=== PATIENT | female | born 1940 | race Caucasian/White ===

== ENCOUNTER 2023-01-02 15:00 | Inpatient (IN) | payer OTHER ==
[~2023-01-02] VITALS: Ht 162.6 cm; Wt 72.6 kg
[2023-01-02] MEDS ORDERED: IV NS 0.9% 1,000 ML BAG IV ONE (16:00)
[2023-01-02 16:05] LABS: BASOPHILS # (AUTO) 0.1 K/uL (0.0-0.2); BASOPHILS % (AUTO) 0.8 % (0.0-2.0); EOSINOPHILS % (AUTO) 0.7 % (0.0-6.0); HEMATOCRIT 47 % (33-45); HEMOGLOBIN 15.8 g/dL (11.5-14.8); LYMPHOCYTES # (AUTO) 0.9 K/uL (0.8-4.8); LYMPHOCYTES % (AUTO) 15.6 % (20.0-44.0); MEAN CORPUSCULAR HEMOGLOBIN 31 PG (26.0-33.0); MEAN CORPUSCULAR HGB CONC 34 g/dl (31.0-36.0); MEAN CORPUSCULAR VOLUME 92 fL (82-100); MONOCYTES # (AUTO) 0.3 K/uL (0.1-1.30); MONOCYTES % (AUTO) 5.2 % (2.0-12.0); NEUTROPHILS # (AUTO) 4.7 K/uL (1.8-8.9); NEUTROPHILS % (AUTO) 77.7 % (43.0-81.0); PLATELET COUNT (AUTO) 191 K/uL (150-450); RED BLOOD CELL COUNT(AUTO) 5.15 MIL/uL (4.0-5.2); RED CELL DISTRIBUTION WIDTH 17.3 % (11.5-15.0)
[2023-01-02 16:21] LABS: CALCIUM, SERUM 10.1 mg/dL (8.5-10.1); CARBON DIOXIDE 27 mmol/L (21-32); CHLORIDE 98 mmol/L (98-107); CREATININE 1.4 mg/dL (0.6-1.3); GLUCOSE 122 mg/dL (74-106); SODIUM SERUM 139 mmol/L (136-145); UREA NITROGEN, BLOOD 20 mg/dL (7-18)
[2023-01-02 16:26] LABS: LACTIC ACID 2.3 mmol/L (0.4-2.0)
[2023-01-02] MEDS ORDERED: POTASSIUM CHLORIDE 20 MEQ TAB.PRT.SR PO ONE ×2 (17:30→17:37)
[2023-01-02] MEDS ORDERED: POTA20TA10 PO (17:41)
[2023-01-02] MEDS ORDERED: BISA-79 PO (17:41)
[2023-01-02] MEDS ORDERED: ROSU20TA2 PO (17:41)
[2023-01-02] MEDS ORDERED: LEVO88TA5 PO (17:41)
[2023-01-02] MEDS ORDERED: BACL5TAB PO (17:41)
[2023-01-02] MEDS ORDERED: DIPH25TA25 PO (17:41)
[2023-01-02] MEDS ORDERED: ACET-2605 PO (17:41)
[2023-01-02] MEDS ORDERED: RIVA15TA PO (17:41)
[2023-01-02] MEDS ORDERED: INDA2.5T5 PO (17:41)
[2023-01-02] MEDS ORDERED: GABA300C PO (17:41)
[2023-01-02] MEDS ORDERED: SENN-261 PO (17:41)
[2023-01-02] MEDS ORDERED: FLUC150T5 PO (17:41)
[2023-01-02 17:47] LABS: INR 1.06 (0.91-1.10); PARTIAL THROMBOPLASTIN TIME 22.8 SEC (24.3-34.3); PROTHROMBIN TIME 11.1 SECS (9.2-11.1)
[2023-01-02 17:52] LABS: ALBUMIN 3.5 g/dL (3.4-5.0); BILIRUBIN,DIRECT 0.4 mg/dL (0.0-0.2); BILIRUBIN,TOTAL 2.8 mg/dL (0.2-1.0); MAGNESIUM 2.3 mg/dL (1.8-2.4); TOTAL PROTEIN, SERUM 7.1 g/dL (6.4-8.2)
[2023-01-02 19:08] LABS: BILIRUBIN,DIRECT 0.4 mg/dL (0.0-0.2); BILIRUBIN,TOTAL 1.9 mg/dL (0.2-1.0)
[2023-01-02 20:42] LABS: APPEARANCE,URINE CLOUDY (CLEAR); BILIRUBIN,URINE NEGATIVE (NEGATIVE); BLOOD, URINE 3+ Ery/uL (NEGATIVE); COLOR,URINE YELLOW (YELLOW); KETONES,URINE NEGATIVE (NEGATIVE); LEUKOCYTE ESTERASE ,URINE 3+ (NEGATIVE); NITRITE, URINE POSITIVE (NEGATIVE); PH,URINE 6.5 (5.0-8.0); PROTEIN,URINE 1+ mg/dl (NEGATIVE); UGLUCOSE NEGATIVE (NEGATIVE)
[2023-01-02 21:30] VITALS: BP 118/79; TEMP 97.5; O2SAT 96
[2023-01-02] MEDS ORDERED: ONDANSETRON HCL/PF 4 MG/2 ML VIAL IVP PRN (22:00)
[2023-01-02] MEDS ORDERED: HYDROCODONE/APAP 10/325MG TABLET PO PRN (22:00)
[2023-01-02] MEDS ORDERED: ZOLPIDEM TARTRATE 5 MG TABLET PO PRN (22:00)
[2023-01-02] MEDS ORDERED: SENNOSIDES 8.6 MG TABLET PO SCH (22:00)
[2023-01-02] MEDS ORDERED: MAG HYDROX/AL HYDROX/SIMETH 30 ML UDC PO PRN (22:00)
[2023-01-02] MEDS ORDERED: MAGNESIUM HYDROXIDE 30 ML UDC PO PRN (22:00)
[2023-01-02] MEDS ORDERED: Z GUARD REMEDY 4 OZ OINT TP PRN (22:00)
[2023-01-02] MEDS ORDERED: ACETAMINOPHEN 325 MG TABLET PO PRN (22:00)
[2023-01-02 22:05] LABS: ADD URINE CULTURE YES; BACTERIA,URINE 4+ /HPF (None Seen); RBC,URINE 51-80 /HPF (0-2); SQUAMOUS EPITHELIAL CELL,UR 0-2 /HPF (None Seen); WBC,URINE 51-80 /HPF (0-3)
[2023-01-02] MEDS: IV NS 0.9% 1,000 ML IV PRN (22:12)
[2023-01-02] MEDS: RIVAROXABAN 15 MG TABLET PO SCH (22:17)
[2023-01-02] MEDS: ATORVASTATIN 40 MG TABLET PO SCH (22:17)
[2023-01-03] MEDS ORDERED: CIPROFLOXACIN IV RTU 400 MG in PREMIX 1 EA IV SCH (02:00)
[2023-01-03] MEDS ORDERED: CIPROFLOXACIN IV RTU 200 ML IV ONE (03:07)
[2023-01-03 06:29] LABS: BASOPHILS % (AUTO) 0.3 % (0.0-2.0); EOSINOPHILS % (AUTO) 0.9 % (0.0-6.0); HEMATOCRIT 36 % (33-45); HEMOGLOBIN 12.6 g/dL (11.5-14.8); LYMPHOCYTES # (AUTO) 1.1 K/uL (0.8-4.8); LYMPHOCYTES % (AUTO) 20.6 % (20.0-44.0); MEAN CORPUSCULAR HEMOGLOBIN 32 PG (26.0-33.0); MEAN CORPUSCULAR HGB CONC 35 g/dl (31.0-36.0); MEAN CORPUSCULAR VOLUME 91 fL (82-100); MONOCYTES # (AUTO) 0.4 K/uL (0.1-1.30); MONOCYTES % (AUTO) 6.6 % (2.0-12.0); NEUTROPHILS # (AUTO) 3.8 K/uL (1.8-8.9); NEUTROPHILS % (AUTO) 71.6 % (43.0-81.0); PLATELET COUNT (AUTO) 166 K/uL (150-450); RED BLOOD CELL COUNT(AUTO) 3.97 MIL/uL (4.0-5.2); RED CELL DISTRIBUTION WIDTH 16.4 % (11.5-15.0); WHITE BLOOD COUNT (AUTO) 5.3 K/uL (4.3-11.0)
[2023-01-03 06:46] LABS: CALCIUM, SERUM 8.8 mg/dL (8.5-10.1); CARBON DIOXIDE 26 mmol/L (21-32); CHLORIDE 105 mmol/L (98-107); CREATININE 1.1 mg/dL (0.6-1.3); GLUCOSE 90 mg/dL (74-106); MAGNESIUM 2.2 mg/dL (1.8-2.4); PHOSPHORUS 3.2 mg/dL (2.5-4.9); SODIUM SERUM 141 mmol/L (136-145); UREA NITROGEN, BLOOD 17 mg/dL (7-18)
[2023-01-03 06:59] LABS: CHOLESTEROL 134 mg/dL (<200); HDL CHOLESTEROL 51 mg/dL (40-60); LDL 66 mg/dL (0-99); THYROID STIMULATING HORMONE 1.152 uIU/mL (0.358-3.74); TRIGLYCERIDES 65 mg/dL (30-150)
[2023-01-03 07:10] LABS: POTASSIUM 2.3 mmol/L (3.5-5.1)
[2023-01-03] MEDS: LEVOTHYROXINE SODIUM 88 MCG TABLET PO SCH (07:54)
[2023-01-03 08:00] VITALS: BP 112/64; TEMP 98.2; O2SAT 94
[2023-01-03] MEDS ORDERED: POTASSIUM CHLORIDE 20 MEQ TAB.PRT.SR PO ONE ×2 (08:30→20:00)
[2023-01-03] MEDS: INDAPAMIDE 2.5 MG TABLET PO SCH (09:00)
[2023-01-03] MEDS: IV NS 0.9% 1,000 ML IV PRN (12:30)
[2023-01-03 16:00] VITALS: BP 114/59; TEMP 97.9; O2SAT 94
[2023-01-03 20:00] VITALS: BP 107/59; TEMP 97.9; O2SAT 94
[2023-01-03] MEDS: CIPROFLOXACIN IV RTU 400 MG in PREMIX 1 EA IV SCH (21:22)
[2023-01-03] MEDS: ATORVASTATIN 40 MG TABLET PO SCH (21:25)
[2023-01-03] MEDS: RIVAROXABAN 15 MG TABLET PO SCH (21:27)
[2023-01-04] VITALS (8 sets, daily range): BP systolic 95–119; BP diastolic 53–80; TEMP 97.4–98.1; O2SAT 94–98
[2023-01-04] MEDS: IV NS 0.9% 1,000 ML IV PRN (04:18)
[2023-01-04 06:52] LABS: BASOPHILS % (AUTO) 0.5 % (0.0-2.0); EOSINOPHILS % (AUTO) 1.6 % (0.0-6.0); HEMATOCRIT 35 % (33-45); HEMOGLOBIN 11.8 g/dL (11.5-14.8); LYMPHOCYTES # (AUTO) 0.9 K/uL (0.8-4.8); LYMPHOCYTES % (AUTO) 31.1 % (20.0-44.0); MEAN CORPUSCULAR HEMOGLOBIN 31 PG (26.0-33.0); MEAN CORPUSCULAR HGB CONC 34 g/dl (31.0-36.0); MEAN CORPUSCULAR VOLUME 93 fL (82-100); MONOCYTES # (AUTO) 0.2 K/uL (0.1-1.30); MONOCYTES % (AUTO) 7.5 % (2.0-12.0); NEUTROPHILS # (AUTO) 1.8 K/uL (1.8-8.9); NEUTROPHILS % (AUTO) 59.3 % (43.0-81.0); PLATELET COUNT (AUTO) 148 K/uL (150-450); RED BLOOD CELL COUNT(AUTO) 3.79 MIL/uL (4.0-5.2)
[2023-01-04 07:07] LABS: CALCIUM, SERUM 8.7 mg/dL (8.5-10.1); CARBON DIOXIDE 25 mmol/L (21-32); CHLORIDE 107 mmol/L (98-107); GLUCOSE 103 mg/dL (74-106); MAGNESIUM 2.3 mg/dL (1.8-2.4); PHOSPHORUS 2.5 mg/dL (2.5-4.9); POTASSIUM 3.2 mmol/L (3.5-5.1); SODIUM SERUM 139 mmol/L (136-145); UREA NITROGEN, BLOOD 12 mg/dL (7-18)
[2023-01-04] MEDS ORDERED: POTASSIUM CHLORIDE 20 MEQ TAB.PRT.SR PO ONE (08:00)
[2023-01-04] MEDS: INDAPAMIDE 2.5 MG TABLET PO SCH (09:00)
[2023-01-04] MEDS: CIPROFLOXACIN IV RTU 400 MG in PREMIX 1 EA IV SCH ×2 (09:37→20:45)
[2023-01-04] MEDS: LEVOTHYROXINE SODIUM 88 MCG TABLET PO SCH (09:37)
[2023-01-04 14:14] LABS: URIC ACID 4.6 mg/dL (2.6-7.2)
[2023-01-04] MEDS: MUPIROCIN OINT 2% 22 GM TUBE NS SCH ×2 (17:14→20:46)
[2023-01-04] MEDS: ATORVASTATIN 40 MG TABLET PO SCH (21:26)
[2023-01-04] MEDS: RIVAROXABAN 15 MG TABLET PO SCH (21:30)
[2023-01-05] VITALS: BP 113/63; TEMP 97.8; O2SAT 95
[2023-01-05] MEDS: IV NS 0.9% 1,000 ML IV PRN (00:57)
[2023-01-05 05:00] VITALS: BP 119/64; TEMP 98.1; O2SAT 95
[2023-01-05 08:24] VITALS: BP 114/59; TEMP 97.5; O2SAT 94
[2023-01-05] MEDS: INDAPAMIDE 2.5 MG TABLET PO SCH (08:27)
[2023-01-05] MEDS: MUPIROCIN OINT 2% 22 GM TUBE NS SCH (08:27)
[2023-01-05] MEDS: LEVOTHYROXINE SODIUM 88 MCG TABLET PO SCH (08:27)
[2023-01-05] MEDS: CIPROFLOXACIN IV RTU 400 MG in PREMIX 1 EA IV SCH (08:27)
[2023-01-05] MEDS ORDERED: PERMETHRIN 5% CRM 60 GM TUBE TP ONE (09:00)
[2023-01-05 09:01] LABS: BASOPHILS % (AUTO) 0.5 % (0.0-2.0); EOSINOPHILS # (AUTO) 0.1 K/uL (0.0-0.7); EOSINOPHILS % (AUTO) 2.6 % (0.0-6.0); HEMATOCRIT 36 % (33-45); LYMPHOCYTES # (AUTO) 0.7 K/uL (0.8-4.8); LYMPHOCYTES % (AUTO) 26.6 % (20.0-44.0); MEAN CORPUSCULAR HEMOGLOBIN 31 PG (26.0-33.0); MEAN CORPUSCULAR HGB CONC 33 g/dl (31.0-36.0); MEAN CORPUSCULAR VOLUME 94 fL (82-100); MONOCYTES # (AUTO) 0.1 K/uL (0.1-1.30); MONOCYTES % (AUTO) 5.3 % (2.0-12.0); NEUTROPHILS # (AUTO) 1.7 K/uL (1.8-8.9); PLATELET COUNT (AUTO) 156 K/uL (150-450); RED BLOOD CELL COUNT(AUTO) 3.84 MIL/uL (4.0-5.2); RED CELL DISTRIBUTION WIDTH 17.1 % (11.5-15.0); WHITE BLOOD COUNT (AUTO) 2.7 K/uL (4.3-11.0)
[2023-01-05 09:52] LABS: CALCIUM, SERUM 8.7 mg/dL (8.5-10.1); CREATININE 1.1 mg/dL (0.6-1.3); MAGNESIUM 1.9 mg/dL (1.8-2.4); PHOSPHORUS 2.2 mg/dL (2.5-4.9); POTASSIUM 3.1 mmol/L (3.5-5.1)
[2023-01-05 12:12] VITALS: BP 96/48; TEMP 98.1; O2SAT 100
[2023-01-05 12:48] LABS: LYMPHOCYTES % (MANUAL) 28 % (16-48); MONOCYTES % (MANUAL) 7 % (0-11.0); NEUTROPHILS % (MANUAL) 65 (42-76)
[2023-01-05 12:49] LABS: ANISOCYTOSIS 1+; PLATELET ESTIMATE ADEQUATE
[2023-01-05] MEDS ORDERED: NEUTRA PHOS 1 POWD.PACKET PO ONE (14:00)
[2023-01-05] MEDS ORDERED: POTASSIUM CHLORIDE 20 MEQ TAB.PRT.SR PO ONE (14:00)
[2023-01-05] MEDS ORDERED: NEUTRA PHOS 1 POWD.PACKET NG ONE (16:00)
[2023-01-05 16:06] VITALS: BP_SYST 117; BP_SYST 125; BP_DIAS 63; BP_DIAS 75; TEMP 97.5; O2SAT 96
[2023-01-05] MEDS ORDERED: CIPR250T4 PO (17:04)
== END 2023-01-05 15:51 | disposition home health service (06) | DRG 640 ==
LOC: ER 15:06 → TELE 20:15
PROVIDERS: ADMIT Nurse Practitioner Acute Care; ATTEND Internal Medicine
DX: E86.0 Dehydration (principal); N17.0 Acute kidney failure with tubular necrosis; N39.0 Urinary tract infection, site not specified; N13.6 Pyonephrosis; G45.9 Transient cerebral ischemic attack, unspecified; E87.6 Hypokalemia; E86.1 Hypovolemia; E78.5 Hyperlipidemia, unspecified; I25.2 Old myocardial infarction; Z86.711 Personal history of pulmonary embolism; Z86.718 Personal history of other venous thrombosis and embolism; Z89.612 Acquired absence of left leg above knee; Z87.442 Personal history of urinary calculi; E89.0 Postprocedural hypothyroidism; Z85.53 Personal history of malignant neoplasm of renal pelvis; Z90.5 Acquired absence of kidney; Z89.512 Acquired absence of left leg below knee; Z88.0 Allergy status to penicillin; Z88.2 Allergy status to sulfonamides; Z88.7 Allergy status to serum and vaccine; Z88.8 Allergy status to other drugs, medicaments and biological substances; Z88.1 Allergy status to other antibiotic agents; Z91.041 Radiographic dye allergy status; Z79.01 Long term (current) use of anticoagulants; Z79.899 Other long term (current) drug therapy; Z79.3 Long term (current) use of hormonal contraceptives; F41.9 Anxiety disorder, unspecified; I25.10 Atherosclerotic heart disease of native coronary artery without angina pectoris; B96.89 Other specified bacterial agents as the cause of diseases classified elsewhere; R91.8 Other nonspecific abnormal finding of lung field; E80.6 Other disorders of bilirubin metabolism; Z86.74 Personal history of sudden cardiac arrest; R26.9 Unspecified abnormalities of gait and mobility; E66.9 Obesity, unspecified; Z68.27 Body mass index [BMI] 27.0-27.9, adult; D32.9 Benign neoplasm of meninges, unspecified; L53.9 Erythematous condition, unspecified; K57.30 Diverticulosis of large intestine without perforation or abscess without bleeding; N75.0 Cyst of Bartholin's gland
CPT/HCPCS: 36415; 70450-TC; 71045-TC; 71250-TC; 76770-TC; 80048-TC; 80061-TC; 80076-TC; 81001; 82247-TC; 82248-TC; 83605-TC; 83735-TC; 84100-TC; 84132-TC; 84443-TC; 84484-TC; 84550-TC; 85025-TC; 85652-TC; 85730-TC; 86140-TC; 87040-TC; 87081-TC; 87086-TC; 93307-TC; 97110-TC; 97530-TC; A4216; A4223; A6403; G0378; J0744; J2405; J7030

== ENCOUNTER 2023-01-26 02:18 | Inpatient (IN) | payer OTHER ==
[~2023-01-26] VITALS: Ht 167.6 cm; Wt 76.2 kg
[~2023-01-26 02:18] MED LIST: ACET-2605 PO; BACL5TAB PO; BISA-79 PO; CIPR250T4 PO; DIPH25TA25 PO; GABA300C PO; LEVO88TA5 PO; POTA20TA10 PO; RIVA15TA PO; ROSU20TA2 PO; SENN-261 PO
[2023-01-26] MEDS ORDERED: ASPIRIN 325 MG TABLET PO ONE (02:30)
[2023-01-26 03:02] LABS: EOSINOPHILS % (AUTO) 1.3 % (0.0-6.0); HEMATOCRIT 42 % (33-45); HEMOGLOBIN 14.1 g/dL (11.5-14.8); LYMPHOCYTES # (AUTO) 1.4 K/uL (0.8-4.8); LYMPHOCYTES % (AUTO) 43.2 % (20.0-44.0); MEAN CORPUSCULAR HEMOGLOBIN 31 PG (26.0-33.0); MEAN CORPUSCULAR HGB CONC 33 g/dl (31.0-36.0); MEAN CORPUSCULAR VOLUME 92 fL (82-100); MONOCYTES # (AUTO) 0.3 K/uL (0.1-1.30); MONOCYTES % (AUTO) 9.3 % (2.0-12.0); NEUTROPHILS # (AUTO) 1.5 K/uL (1.8-8.9); NEUTROPHILS % (AUTO) 45.2 % (43.0-81.0); PLATELET COUNT (AUTO) 183 K/uL (150-450); RED BLOOD CELL COUNT(AUTO) 4.62 MIL/uL (4.0-5.2); WHITE BLOOD COUNT (AUTO) 3.4 K/uL (4.3-11.0)
[2023-01-26] MEDS ORDERED: ASPIRIN 325 MG TABLET ONE (03:09)
[2023-01-26 03:13] LABS: CALCIUM, SERUM 9.5 mg/dL (8.5-10.1); CARBON DIOXIDE 26 mmol/L (21-32); CHLORIDE 105 mmol/L (98-107); CREATININE 1.1 mg/dL (0.6-1.3); GLUCOSE 96 mg/dL (74-106); SODIUM SERUM 140 mmol/L (136-145); UREA NITROGEN, BLOOD 12 mg/dL (7-18)
[2023-01-26 03:17] LABS: INR 1.38 (0.91-1.10); PARTIAL THROMBOPLASTIN TIME 38.7 SEC (24.3-34.3); PROTHROMBIN TIME 14.2 SECS (9.2-11.1)
[2023-01-26] MEDS ORDERED: POTASSIUM CHLORIDE 20 MEQ TAB.PRT.SR PO ONE ×2 (04:30→04:31)
[2023-01-26] MEDS ORDERED: MAGNESIUM HYDROXIDE 30 ML UDC PO PRN (06:00)
[2023-01-26] MEDS ORDERED: NITROGLYCERIN 0.4 MG/TAB BOTTLE SL ONE ×2 (06:00→11:00)
[2023-01-26] MEDS ORDERED: Z GUARD REMEDY 4 OZ OINT TP PRN (06:00)
[2023-01-26] MEDS ORDERED: ONDANSETRON HCL/PF 4 MG/2 ML VIAL ONE (06:49)
[2023-01-26] MEDS: ONDANSETRON HCL/PF 4 MG/2 ML VIAL IVP PRN ×3 (06:50→23:45)
[2023-01-26] MEDS ORDERED: GABAPENTIN 300 MG CAPSULE PO SCH (08:30)
[2023-01-26] MEDS ORDERED: POTASSIUM CHLORIDE 20 MEQ TAB.PRT.SR PO SCH (09:00)
[2023-01-26] MEDS: PANTOPRAZOLE 40 MG TABLET.DR PO SCH (10:06)
[2023-01-26] MEDS: LEVOTHYROXINE SODIUM 88 MCG TABLET PO SCH (10:06)
[2023-01-26] MEDS: IV NS 0.9% 1,000 ML IV PRN ×2 (10:10→20:45)
[2023-01-26] MEDS ORDERED: CT SWABBABLE VALVE TRANS SET 1 EA INFUS.SET MC ONE (10:43)
[2023-01-26] MEDS ORDERED: NITROGLYCERIN 0.4 MG/TAB BOTTLE ONE (10:43)
[2023-01-26] MEDS ORDERED: IOHEXOL-350 100 ML VIAL IV ONE (10:43)
[2023-01-26] MEDS ORDERED: IV NS 0.9% 250 ML IV ONE (10:43)
[2023-01-26] MEDS: METOPROLOL TARTRATE INJ 5 MG/5 ML AMPUL IVP PRN ×2 (10:50→17:21)
[2023-01-26 12:00] VITALS: BP 136/60; TEMP 98.2; O2SAT 98
[2023-01-26 16:00] VITALS: BP 160/68; TEMP 98.1; O2SAT 99
[2023-01-26] MEDS ORDERED: CALCIUM CARBONATE 500 MG TAB.CHEW PO PRN (16:30)
[2023-01-26] MEDS: ATORVASTATIN 40 MG TABLET PO SCH (17:12)
[2023-01-26] MEDS ORDERED: RIVAROXABAN 15 MG TABLET PO SCH (18:00)
[2023-01-26 20:00] VITALS: BP 132/79; TEMP 97.5; O2SAT 98
[2023-01-27] VITALS (7 sets, daily range): BP systolic 136–163; BP diastolic 69–90; TEMP 97.5–98.4; O2SAT 98–99
[2023-01-27 05:58] LABS: BASOPHILS % (AUTO) 0.7 % (0.0-2.0); EOSINOPHILS # (AUTO) 0.1 K/uL (0.0-0.7); EOSINOPHILS % (AUTO) 2.4 % (0.0-6.0); HEMATOCRIT 39 % (33-45); HEMOGLOBIN 13.2 g/dL (11.5-14.8); LYMPHOCYTES # (AUTO) 1.1 K/uL (0.8-4.8); LYMPHOCYTES % (AUTO) 35.9 % (20.0-44.0); MEAN CORPUSCULAR HEMOGLOBIN 31 PG (26.0-33.0); MEAN CORPUSCULAR HGB CONC 34 g/dl (31.0-36.0); MEAN CORPUSCULAR VOLUME 93 fL (82-100); MONOCYTES # (AUTO) 0.3 K/uL (0.1-1.30); MONOCYTES % (AUTO) 8.2 % (2.0-12.0); NEUTROPHILS # (AUTO) 1.6 K/uL (1.8-8.9); NEUTROPHILS % (AUTO) 52.8 % (43.0-81.0); PLATELET COUNT (AUTO) 163 K/uL (150-450); RED BLOOD CELL COUNT(AUTO) 4.23 MIL/uL (4.0-5.2); RED CELL DISTRIBUTION WIDTH 16.4 % (11.5-15.0); WHITE BLOOD COUNT (AUTO) 3.1 K/uL (4.3-11.0)
[2023-01-27 06:09] LABS: ALBUMIN 2.6 g/dL (3.4-5.0); BILIRUBIN,TOTAL 1.1 mg/dL (0.2-1.0); CALCIUM, SERUM 8.6 mg/dL (8.5-10.1); CREATININE 0.9 mg/dL (0.6-1.3); MAGNESIUM 1.8 mg/dL (1.8-2.4); PHOSPHORUS 3.5 mg/dL (2.5-4.9); TOTAL PROTEIN, SERUM 5.3 g/dL (6.4-8.2)
[2023-01-27] MEDS: IV NS 0.9% 1,000 ML IV PRN ×2 (06:43→16:17)
[2023-01-27] MEDS: ONDANSETRON HCL/PF 4 MG/2 ML VIAL IVP PRN (06:43)
[2023-01-27] MEDS: LEVOTHYROXINE SODIUM 88 MCG TABLET PO SCH (07:41)
[2023-01-27] MEDS: PANTOPRAZOLE 40 MG TABLET.DR PO SCH (07:41)
[2023-01-27] MEDS: ACETAMINOPHEN 325 MG TABLET PO PRN ×2 (07:41→20:20)
[2023-01-27 08:15] LABS: THYROID STIMULATING HORMONE 1.119 uIU/mL (0.358-3.74)
[2023-01-27] MEDS: ENOXAPARIN SODIUM 80 MG/0.8 ML DISP.SYRIN SQ SCH ×2 (10:37→20:14)
[2023-01-27] MEDS: POTASSIUM CHLORIDE 20 MEQ TAB.PRT.SR PO SCH ×3 (10:38→12:39)
[2023-01-27] MEDS: ASPIRIN 81 MG TAB.CHEW PO SCH (10:38)
[2023-01-27] MEDS: ATORVASTATIN 40 MG TABLET PO SCH (17:37)
[2023-01-28] VITALS: BP 128/73; TEMP 97.3; O2SAT 98
[2023-01-28] MEDS: IV NS 0.9% 1,000 ML IV PRN ×3 (02:17→21:47)
[2023-01-28 04:00] VITALS: BP 147/87; TEMP 97.7; O2SAT 98
[2023-01-28] MEDS: ONDANSETRON HCL/PF 4 MG/2 ML VIAL IVP PRN (05:00)
[2023-01-28] MEDS: ACETAMINOPHEN 325 MG TABLET PO PRN ×2 (06:00→15:52)
[2023-01-28 08:00] VITALS: BP 145/85; TEMP 98.2; O2SAT 99
[2023-01-28 08:10] LABS: BASOPHILS % (AUTO) 0.8 % (0.0-2.0); EOSINOPHILS # (AUTO) 0.1 K/uL (0.0-0.7); EOSINOPHILS % (AUTO) 3.3 % (0.0-6.0); HEMATOCRIT 42 % (33-45); HEMOGLOBIN 13.6 g/dL (11.5-14.8); LYMPHOCYTES # (AUTO) 0.9 K/uL (0.8-4.8); LYMPHOCYTES % (AUTO) 30.8 % (20.0-44.0); MEAN CORPUSCULAR HEMOGLOBIN 31 PG (26.0-33.0); MEAN CORPUSCULAR HGB CONC 33 g/dl (31.0-36.0); MEAN CORPUSCULAR VOLUME 94 fL (82-100); MONOCYTES # (AUTO) 0.2 K/uL (0.1-1.30); MONOCYTES % (AUTO) 8.4 % (2.0-12.0); NEUTROPHILS # (AUTO) 1.7 K/uL (1.8-8.9); NEUTROPHILS % (AUTO) 56.7 % (43.0-81.0); PLATELET COUNT (AUTO) 152 K/uL (150-450); RED BLOOD CELL COUNT(AUTO) 4.46 MIL/uL (4.0-5.2); RED CELL DISTRIBUTION WIDTH 16.7 % (11.5-15.0)
[2023-01-28] MEDS: LEVOTHYROXINE SODIUM 88 MCG TABLET PO SCH (08:22)
[2023-01-28] MEDS: ASPIRIN 81 MG TAB.CHEW PO SCH (08:22)
[2023-01-28] MEDS: PANTOPRAZOLE 40 MG TABLET.DR PO SCH (08:22)
[2023-01-28] MEDS: ENOXAPARIN SODIUM 80 MG/0.8 ML DISP.SYRIN SQ SCH ×2 (08:24→20:21)
[2023-01-28 08:34] LABS: CARBON DIOXIDE 23 mmol/L (21-32); CHLORIDE 109 mmol/L (98-107); CREATININE 0.8 mg/dL (0.6-1.3); GLUCOSE 84 mg/dL (74-106); MAGNESIUM 1.9 mg/dL (1.8-2.4); POTASSIUM 3.2 mmol/L (3.5-5.1); SODIUM SERUM 142 mmol/L (136-145); UREA NITROGEN, BLOOD 7 mg/dL (7-18)
[2023-01-28] MEDS: POTASSIUM CHLORIDE 20 MEQ TAB.PRT.SR PO SCH ×2 (11:03→11:58)
[2023-01-28 12:00] VITALS: BP 150/81; TEMP 97.9; O2SAT 98
[2023-01-28 16:00] VITALS: BP 160/75; TEMP 97.8; O2SAT 99
[2023-01-28] MEDS: ATORVASTATIN 40 MG TABLET PO SCH (18:06)
[2023-01-28 20:00] VITALS: BP 162/78; TEMP 97.8; O2SAT 98
[2023-01-29] VITALS: BP 167/90; TEMP 97.7; O2SAT 97
[2023-01-29 04:00] VITALS: BP 155/71; TEMP 97.8; O2SAT 97
[2023-01-29] MEDS: ONDANSETRON HCL/PF 4 MG/2 ML VIAL IVP PRN (05:24)
[2023-01-29 08:00] VITALS: BP 152/79; TEMP 98; O2SAT 100
[2023-01-29] MEDS: LEVOTHYROXINE SODIUM 88 MCG TABLET PO SCH (08:00)
[2023-01-29] MEDS: ENOXAPARIN SODIUM 80 MG/0.8 ML DISP.SYRIN SQ SCH ×2 (08:00→20:00)
[2023-01-29] MEDS: PANTOPRAZOLE 40 MG TABLET.DR PO SCH (08:00)
[2023-01-29] MEDS: IV NS 0.9% 1,000 ML IV PRN ×2 (08:05→18:06)
[2023-01-29] MEDS: ASPIRIN 81 MG TAB.CHEW PO SCH (08:37)
[2023-01-29 11:14] LABS: CREATININE 0.8 mg/dL (0.6-1.3); MAGNESIUM 1.7 mg/dL (1.8-2.4); PHOSPHORUS 2.5 mg/dL (2.5-4.9); POTASSIUM 2.9 mmol/L (3.5-5.1)
[2023-01-29 11:19] LABS: BASOPHILS % (AUTO) 0.7 % (0.0-2.0); EOSINOPHILS # (AUTO) 0.1 K/uL (0.0-0.7); HEMATOCRIT 39 % (33-45); LYMPHOCYTES # (AUTO) 0.9 K/uL (0.8-4.8); LYMPHOCYTES % (AUTO) 26.9 % (20.0-44.0); MEAN CORPUSCULAR HEMOGLOBIN 31 PG (26.0-33.0); MEAN CORPUSCULAR HGB CONC 34 g/dl (31.0-36.0); MEAN CORPUSCULAR VOLUME 93 fL (82-100); MONOCYTES # (AUTO) 0.3 K/uL (0.1-1.30); MONOCYTES % (AUTO) 7.8 % (2.0-12.0); NEUTROPHILS % (AUTO) 61.6 % (43.0-81.0); PLATELET COUNT (AUTO) 149 K/uL (150-450); RED BLOOD CELL COUNT(AUTO) 4.16 MIL/uL (4.0-5.2); RED CELL DISTRIBUTION WIDTH 16.4 % (11.5-15.0); WHITE BLOOD COUNT (AUTO) 3.3 K/uL (4.3-11.0)
[2023-01-29 12:00] VITALS: BP_SYST 143; BP_SYST 153; BP_DIAS 78; BP_DIAS 79; TEMP 97.9; TEMP 98.2; O2SAT 98; O2SAT 99
[2023-01-29] MEDS ORDERED: POTASSIUM CHLORIDE 20 MEQ TAB.PRT.SR PO ONE (12:30)
[2023-01-29 16:00] VITALS: BP 153/78; TEMP 98.2; O2SAT 98
[2023-01-29] MEDS: ATORVASTATIN 40 MG TABLET PO SCH (17:26)
[2023-01-29 20:00] VITALS: BP 144/76; TEMP 98.4; O2SAT 96
[2023-01-30] VITALS: BP 139/79; TEMP 97.9; O2SAT 95
[2023-01-30 04:00] VITALS: BP 152/78; TEMP 98.1; O2SAT 95
[2023-01-30] MEDS: IV NS 0.9% 1,000 ML IV PRN ×2 (04:03→23:51)
[2023-01-30] MEDS: ONDANSETRON HCL/PF 4 MG/2 ML VIAL IVP PRN (04:08)
[2023-01-30 05:47] LABS: BASOPHILS % (AUTO) 0.8 % (0.0-2.0); EOSINOPHILS # (AUTO) 0.1 K/uL (0.0-0.7); EOSINOPHILS % (AUTO) 4.1 % (0.0-6.0); HEMATOCRIT 40 % (33-45); HEMOGLOBIN 13.1 g/dL (11.5-14.8); LYMPHOCYTES # (AUTO) 0.9 K/uL (0.8-4.8); LYMPHOCYTES % (AUTO) 29.3 % (20.0-44.0); MEAN CORPUSCULAR HEMOGLOBIN 31 PG (26.0-33.0); MEAN CORPUSCULAR HGB CONC 33 g/dl (31.0-36.0); MEAN CORPUSCULAR VOLUME 94 fL (82-100); MONOCYTES # (AUTO) 0.3 K/uL (0.1-1.30); MONOCYTES % (AUTO) 8.9 % (2.0-12.0); NEUTROPHILS # (AUTO) 1.7 K/uL (1.8-8.9); NEUTROPHILS % (AUTO) 56.9 % (43.0-81.0); PLATELET COUNT (AUTO) 134 K/uL (150-450); RED BLOOD CELL COUNT(AUTO) 4.29 MIL/uL (4.0-5.2); RED CELL DISTRIBUTION WIDTH 16.6 % (11.5-15.0); WHITE BLOOD COUNT (AUTO) 2.9 K/uL (4.3-11.0)
[2023-01-30 06:02] LABS: CALCIUM, SERUM 8.2 mg/dL (8.5-10.1); CREATININE 0.9 mg/dL (0.6-1.3); INR 1.06 (0.91-1.10); MAGNESIUM 1.5 mg/dL (1.8-2.4); PARTIAL THROMBOPLASTIN TIME 29.5 SEC (24.3-34.3); PHOSPHORUS 2.7 mg/dL (2.5-4.9); POTASSIUM 3.5 mmol/L (3.5-5.1); PROTHROMBIN TIME 11.1 SECS (9.2-11.1)
[2023-01-30 08:00] VITALS: BP 155/75; TEMP 98.6; O2SAT 95
[2023-01-30] MEDS ORDERED: MAGNESIUM OXIDE 400 MG TABLET PO ONE (09:00)
[2023-01-30] MEDS: ASPIRIN 81 MG TAB.CHEW PO SCH (09:49)
[2023-01-30] MEDS: LEVOTHYROXINE SODIUM 88 MCG TABLET PO SCH (09:49)
[2023-01-30] MEDS: PANTOPRAZOLE 40 MG TABLET.DR PO SCH (09:49)
[2023-01-30] MEDS: Magnesium 1GM/D5W 100ML PREMIX 100 ML IV SCH ×2 (09:50→10:51)
[2023-01-30] MEDS: ENOXAPARIN SODIUM 80 MG/0.8 ML DISP.SYRIN SQ SCH ×2 (09:57→20:31)
[2023-01-30] MEDS ORDERED: IV NS 0.9% 1,000 ML ONE (11:00)
[2023-01-30] MEDS ORDERED: IODIXANOL 150 ML IV ONE (11:00)
[2023-01-30] MEDS ORDERED: IV SET PRIMARY PUMP SET 1 EA INFUS.SET MC ONE (11:00)
[2023-01-30] MEDS ORDERED: NITROGLYCERIN IN 5 % DEXTROSE 250 ML IV ONE (11:01)
[2023-01-30] MEDS ORDERED: LIDOCAINE HCL/MPF 1% 30 ML VIAL IJ ONE (11:01)
[2023-01-30] MEDS ORDERED: MIDAZOLAM HCL 2 MG/2ML VIAL ONE (12:26)
[2023-01-30] MEDS ORDERED: FENTANYL PF 100MCG/2ML AMPUL ONE (12:26)
[2023-01-30 13:00] VITALS: BP 148/95; TEMP 98.7; O2SAT 95
[2023-01-30 16:00] VITALS: BP 133/72; TEMP 98.2; O2SAT 98
[2023-01-30] MEDS: ATORVASTATIN 40 MG TABLET PO SCH (17:16)
[2023-01-30 20:00] VITALS: BP 132/76; TEMP 98.2; O2SAT 96
[2023-01-31] VITALS: BP 129/73; TEMP 97.5; O2SAT 97
[2023-01-31 04:00] VITALS: BP 138/76; TEMP 97.7; O2SAT 97
[2023-01-31] MEDS: ONDANSETRON HCL/PF 4 MG/2 ML VIAL IVP PRN (04:57)
[2023-01-31 07:50] LABS: BASOPHILS % (AUTO) 0.8 % (0.0-2.0); EOSINOPHILS # (AUTO) 0.1 K/uL (0.0-0.7); EOSINOPHILS % (AUTO) 3.3 % (0.0-6.0); HEMATOCRIT 37 % (33-45); HEMOGLOBIN 12.4 g/dL (11.5-14.8); LYMPHOCYTES # (AUTO) 0.8 K/uL (0.8-4.8); LYMPHOCYTES % (AUTO) 25.9 % (20.0-44.0); MEAN CORPUSCULAR HEMOGLOBIN 31 PG (26.0-33.0); MEAN CORPUSCULAR HGB CONC 34 g/dl (31.0-36.0); MEAN CORPUSCULAR VOLUME 93 fL (82-100); MONOCYTES # (AUTO) 0.2 K/uL (0.1-1.30); MONOCYTES % (AUTO) 7.1 % (2.0-12.0); NEUTROPHILS # (AUTO) 1.9 K/uL (1.8-8.9); NEUTROPHILS % (AUTO) 62.9 % (43.0-81.0); PLATELET COUNT (AUTO) 130 K/uL (150-450); RED BLOOD CELL COUNT(AUTO) 3.99 MIL/uL (4.0-5.2); RED CELL DISTRIBUTION WIDTH 16.4 % (11.5-15.0)
[2023-01-31 08:00] VITALS: BP 149/71; TEMP 98.2; O2SAT 94
[2023-01-31 08:01] LABS: CALCIUM, SERUM 7.6 mg/dL (8.5-10.1); CREATININE 0.8 mg/dL (0.6-1.3); MAGNESIUM 2.1 mg/dL (1.8-2.4); PHOSPHORUS 2.7 mg/dL (2.5-4.9); POTASSIUM 3.2 mmol/L (3.5-5.1)
[2023-01-31] MEDS: ASPIRIN 81 MG TAB.CHEW PO SCH (08:20)
[2023-01-31] MEDS: PANTOPRAZOLE 40 MG TABLET.DR PO SCH (08:20)
[2023-01-31] MEDS: LEVOTHYROXINE SODIUM 88 MCG TABLET PO SCH (08:21)
[2023-01-31] MEDS: ENOXAPARIN SODIUM 80 MG/0.8 ML DISP.SYRIN SQ SCH (08:22)
[2023-01-31] MEDS ORDERED: POTASSIUM CHLORIDE 20 MEQ TAB.PRT.SR PO SCH (11:00)
== END 2023-01-31 12:02 | DRG 287 ==
LOC: ER 02:19 → TELE1 06:34 → TELE-TD 01-30 13:31 → MEDSG1 01-31 09:47
PROVIDERS: ADMIT Student in an Organized Health Care Education/Training Program; ATTEND Internal Medicine
PROC: 05HB33Z Insertion of Infusion Device into Right Basilic Vein, Percutaneous Approach (ICD-10-PCS; principal; 2023-01-29)
PROC: 4A023N7 Measurement of Cardiac Sampling and Pressure, Left Heart, Percutaneous Approach (ICD-10-PCS; 2023-01-30)
PROC: B211YZZ Fluoroscopy of Multiple Coronary Arteries using Other Contrast (ICD-10-PCS; 2023-01-30)
DX: I25.110 Atherosclerotic heart disease of native coronary artery with unstable angina pectoris (principal); N13.30 Unspecified hydronephrosis; E87.6 Hypokalemia; I10 Essential (primary) hypertension; E89.0 Postprocedural hypothyroidism; I25.2 Old myocardial infarction; Z90.5 Acquired absence of kidney; Z85.528 Personal history of other malignant neoplasm of kidney; E78.5 Hyperlipidemia, unspecified; Z88.0 Allergy status to penicillin; Z88.1 Allergy status to other antibiotic agents; Z88.2 Allergy status to sulfonamides; Z91.041 Radiographic dye allergy status; Z88.7 Allergy status to serum and vaccine; Z79.01 Long term (current) use of anticoagulants; Z79.890 Hormone replacement therapy; Z79.899 Other long term (current) drug therapy; Z87.440 Personal history of urinary (tract) infections; Z89.512 Acquired absence of left leg below knee; Z86.711 Personal history of pulmonary embolism; Z86.718 Personal history of other venous thrombosis and embolism; Z86.74 Personal history of sudden cardiac arrest; R26.9 Unspecified abnormalities of gait and mobility; N89.9 Noninflammatory disorder of vagina, unspecified; R91.8 Other nonspecific abnormal finding of lung field; K57.30 Diverticulosis of large intestine without perforation or abscess without bleeding; F41.9 Anxiety disorder, unspecified; E66.9 Obesity, unspecified; Z79.82 Long term (current) use of aspirin; N32.3 Diverticulum of bladder; Z68.27 Body mass index [BMI] 27.0-27.9, adult; G62.9 Polyneuropathy, unspecified
CPT/HCPCS: 36415; 71045-TC; 75574; 80048-TC; 80053-TC; 80061-TC; 83735-TC; 84100-TC; 84132-TC; 84443-TC; 84484-TC; 85025-TC; 85610-TC; 85730-TC; 97530-TC; A4223; G0378; G0500; J1644; J1650; J2250; J2405; J3010; J3475; J3490; J7030; J7050; Q9967